=== PATIENT | female | born 1950 | race Caucasian/White ===

== ENCOUNTER 2017-05-27 07:01 | Day surgery (SDC) | payer MEDICARE, BC ==
[2017-05-27] MEDS ORDERED: Lactated Ringers 1,000 ML IV SCH (07:30)
[2017-05-27] MEDS ORDERED: Midazolam 1 MG/ML 2 ML SDV ONE (08:06)
[2017-05-27] MEDS ORDERED: Propofol 200 MG/20 ML SDV ONE (08:06)
[2017-05-27] MEDS ORDERED: fentaNYL 100 MCG/2 ML SDV ONE (08:06)
[2017-05-27 10:38] VITALS: BP 132/71
--- NOTE | 2017-05-27 12:54 | OR ---
DATE OF PROCEDURE: 05/27/2017 PREOPERATIVE DIAGNOSIS: Colon cancer screening. POSTOPERATIVE DIAGNOSIS: Unremarkable colonoscopy. PROCEDURE PERFORMED: Colonoscopy to the cecum. SURGEON: Trace Avila MD. ANESTHESIA: IV anesthesia with monitored anesthesia care. INDICATION: This 67-year-old white female was referred for a colonoscopy for colon cancer screening. She says her last colonoscopic exam was done about 10 to 12 years ago. I counseled her for the procedure including risks and alternatives, and she gave her informed consent to proceed. DESCRIPTION OF PROCEDURE: The patient was placed in the left lateral decubitus position. IV anesthesia was administered by the Anesthesia Service. Time-out was held. A rectal exam was performed, which was unremarkable. The flexible video Olympus colonoscope was introduced through her anus, up her rectum, and out her colon all the way to the cecum. To accomplish this, we had to apply some abdominal compression. Once the cecum was reached, the scope was slowly withdrawn, examining the mucosa throughout. No mucosal abnormalities were noted. There were areas of solid stool, which precluded complete examination of all the mucosa. The scope was retroflexed in the rectum with the distal rectum appearing unremarkable. The scope was straightened and removed. She tolerated the procedure well. Trace Avila MD /[id number]
== END 2017-05-27 10:54 | disposition home or self-care (01) ==
LOC: JP.SDS 07:01
PROVIDERS: ATTEND Surgery
DX: Z12.11 Encounter for screening for malignant neoplasm of colon (principal); E03.9 Hypothyroidism, unspecified; E78.5 Hyperlipidemia, unspecified; M06.9 Rheumatoid arthritis, unspecified; E66.9 Obesity, unspecified; G47.00 Insomnia, unspecified; R91.1 Solitary pulmonary nodule; Z88.5 Allergy status to narcotic agent
CPT/HCPCS: G0121; J2250; J2704; J3010; J7120

== ENCOUNTER 2023-01-15 09:12 | Day surgery (SDC) | payer MEDICARE, BC ==
[2023-01-15 09:52] VITALS: PULSE 80
[2023-01-15] MEDS ORDERED: Sodium Chloride 0.9% 10 ML Syringe FLUSH PRN (10:00)
[2023-01-15 10:53] VITALS: BP 154/94
== END 2023-01-15 10:54 | disposition home or self-care (01) ==
LOC: JP.SDS 09:12
PROVIDERS: ATTEND Ophthalmology
DX: H26.9 Unspecified cataract (principal); F41.9 Anxiety disorder, unspecified; F32.A Depression, unspecified; Z88.1 Allergy status to other antibiotic agents; Z79.899 Other long term (current) drug therapy
CPT/HCPCS: J3490

== ENCOUNTER 2023-01-29 08:46 | Day surgery (SDC) | payer MEDICARE, BC ==
[2023-01-29] MEDS ORDERED: Sodium Chloride 0.9% 10 ML Syringe FLUSH PRN (09:30)
[2023-01-29 10:11] VITALS: BP 157/73; PULSE 84
== END 2023-01-29 10:17 | disposition home or self-care (01) ==
LOC: JP.SDS 08:46
PROVIDERS: ATTEND Ophthalmology
DX: E11.36 Type 2 diabetes mellitus with diabetic cataract (principal); H26.9 Unspecified cataract; I10 Essential (primary) hypertension; E78.5 Hyperlipidemia, unspecified; E03.9 Hypothyroidism, unspecified
CPT/HCPCS: 66984; J3490; V2632